=== PATIENT | female | born 1990 | race Caucasian/White ===

== ENCOUNTER → 2018-09-04 09:57 | Outpatient (CLI) | payer BC, SELFPAY ==
--- NOTE | 2018-09-04 10:07 | CT_ITS ---
CT abdomen pelvis w con CLINICAL INDICATION: ITS.REASON: ABD DISTENTON ORDERING PHYSICIAN: Nisha Robertson APRN PATIENT AGE: 28 years COMPARISON: None TECHNIQUE: Axial images obtained with sagittal and coronal reformats. All CT scans at the facility use one or more dose reduction, viz: automated exposure control, ma/kV adjustment per patient size (including targeted exams where dose is matched to indication, i.e. head), or iterative reconstruction technique. PROCEDURE: Oral Contrast: Yes IV Contrast: Yes . FINDINGS: Lower thorax: No acute finding ABDOMEN: Liver: No masses or biliary dilatation. Gallbladder: Nondistended. No radio opaque stones. Pancreas: No masses or peripancreatic fluid collections. Spleen: Unremarkable. Adrenals: Unremarkable Kidneys/ureters: No masses. No renal calculi. No hydronephrosis. No perinephric fluid collections. No ureteral dilatation or obvious ureteral calculi. Stomach bowel: Nondistended. No obvious mass or thickening. Appendix: No evidence of appendicitis. PELVIS: Reproductive: There appears to be mild prominence of the superior midline septum of the uterine cavity. Bladder: Nondistended. No obvious stones or masses. ABDOMEN & PELVIS: Peritoneum: No abnormal fluid collections. No obvious inflammatory changes. No free air. Lymph nodes: No enlarged lymph nodes apparent. Vasculature: No evidence of abdominal aortic aneurysm. No retroperitoneal hemorrhage evident. Bones: No acute fracture IMPRESSION: No evidence of free air, ascites or bowel dilatation. 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
== END ==
PROVIDERS: PCP Family Medicine; Referring Provider Nurse Practitioner Family; Visit Provider Nurse Practitioner Family
DX: R14.0 Abdominal distension (gaseous) (principal)
CPT/HCPCS: 74177; Q9967

== ENCOUNTER → 2019-12-25 09:34 | Outpatient (CLI) | payer BC, SELFPAY ==
[2019-12-26 14:01] LABS: Covid-19 Nasal PCR Sendout Lex NOT DETECTED
== END ==
PROVIDERS: PCP Family Medicine; Visit Provider Nurse Practitioner Family
DX: Z03.818 Encounter for observation for suspected exposure to other biological agents ruled out (principal)
CPT/HCPCS: U0004

== ENCOUNTER 2022-07-04 16:20 | Emergency (ER) | payer MEDICAID, SELFPAY ==
--- NOTE | 2022-07-04 16:29 | PC.NURSE ---
pt in restroom at this time
[2022-07-04 16:30] VITALS: BP 142/58; PULSE 95; RESP 18; TEMP 36.7; O2SAT 95
[2022-07-04 16:37] VITALS: BMI 20.9
[2022-07-04 16:48] LABS: Microscopic, Urine URINE MICROSCOPIC (MICROSCOPIC)
--- NOTE | 2022-07-04 16:49 | US_ITS ---
PROCEDURE INFORMATION: Exam: US First Trimester, Transabdominal and US Duplex Artery or Vein, Ovaries, Limited Exam date and time: 07/04/2022 5:11 PM Age: 32 years old Clinical indication: Lmp or gestational age (in weeks): 04/21/2022; Other: Vaginal bleeding and pain; complicated by abdominal or pelvic pain; ; Additional info: Pg, vaginal bleeding . LMP 04/21/2022 with EGA of 10 weeks 4 days and BETO of 01/26/2023 TECHNIQUE: Imaging protocol: Real-time transabdominal obstetrical ultrasound of the maternal pelvis and a first trimester , less than 14 weeks 0 days, with image documentation. Real-time duplex ultrasound scan of the arterial or venous flow of the ovaries with B-mode, color Doppler flow and spectral waveform analysis, limited Duplex. Duplex exam was performed to evaluate for torsion and other vascular conditions. COMPARISON: ABDPELW CT abdomen pelvis w con 09/04/2018 11:09 AM FINDINGS: Gestation: There is a likely single intrauterine gestational sac. Less likely would be a pseudo sac. This has slightly irregular contours on some images but the technologist noted that this was due to uterine contractions. No well-defined pole seen. No yolk sac was seen. Embryonic/ heart rate: No heart rate yet detected Extra-embryonic membranes/Placenta: Unremarkable. No subchorionic bleed. Amniotic fluid: Amniotic fluid is unremarkable. BIOMETRY: Gestational age (AUA): Mean sac diameter of 1.55 cm corresponds with gestational age of 6 weeks 3 days, with BETO of 02/24/2023. MATERNAL: Uterus: The uterus measured approximately 9.3 cm length. There are some echogenic shadowing foci in the anterior myometrium which could be underlying fibroid or myometrial calcifications, see images 12-13. The technologist noted possible uterine contraction during the exam. Cervix: The endocervical canal measures approximately 3 cm length on these images and appears closed. Tiny cervical nabothian cyst. Right ovary/adnexa: Suboptimal acoustic window and bowel gas limit evaluation. The right ovary measures approximately 1.9 x 1.7 x 1.3 cm, containing tiny follicles. Color flow is not well seen. Duplex venous Doppler waveform was documented in the right ovary. No enlarged cyst or mass seen. Left ovary/adnexa: Suboptimal acoustic window and bowel gas limit evaluation. The structure believed to be the left ovary measures approximately 1.7 x 2.2 x 1.4 cm. There is some color flow, and duplex arterial flow documented in the left ovary. No findings of torsion. No enlarged cyst or mass seen. Intraperitoneal space: No intraperitoneal free fluid. IMPRESSION: 1. Likely intrauterine gestational sac of 6 week 3 day size, but there is no pole or yolk sac visible. Given the LMP of 04/21/2022, findings are suspicious for, but not diagnostic of, failure. Recommend correlation with serial quantitative HCG levels and close follow-up to exclude a very early viable IUP, versus failure. 2. Less likely differential would be a pseudo sac with occult ectopic ; no ectopic detected. 3. Suboptimal Doppler exam due to bowel gas shadows and poor acoustic window, but some Doppler flow was seen in both ovaries as detailed above. No findings of torsion to explain pelvic pain. 4. Additional nonemergency and chronic findings as above.
[2022-07-04 16:56] LABS: Appearance,Urine CLEAR (Clear); Bilirubin,Urine Negative (Negative); Blood, Urine 3+ (Negative); Color,Urine YELLOW (Yellow); Glucose,Urine (UA) Negative (Negative); Ketones,Urine Negative (Negative); Leukocyte Esterase,Urine Negative (Negative); Nitrate,Urine Negative (Negative); Protein,Urine Negative (Negative); Specific Gravity, Urine 1.015 (1.005-1.030); Urobilinogen,Urine 0.2 EU/dl (0.2)
--- NOTE | 2022-07-04 17:07 | PC.NURSE ---
pt to ultrasound via wheelchair
[2022-07-04 17:18] LABS: Basophils # 0.1 K/mm3 (0-0.2); Basophils % 0.4 % (0.1-2.0); Eosinophils # 0.3 K/mm3 (0.0-0.4); Eosinophils % 2.7 % (0.1-12.0); Hematocrit 45.2 % (37.0-47.0); Hemoglobin 14.8 g/dL (12.2-16.2); Lymphocytes # 2.1 K/mm3 (0.7-4.5); Mean Corpuscular HGB Conc 32.6 g/dL (31.8-35.4); Mean Corpuscular Hemoglobin 31.5 pg (27.0-31.2); Mean Corpuscular Volume 96.6 fl (81-99); Mean Platelet Volume 7.6 fl (7.4-10.4); Monocytes # 0.5 K/mm3 (0.1-1.0); Monocytes % 3.7 % (1.7-9.3); Neutrophils # 9.4 K/mm3 (1.8-7.8); Neutrophils % 76.1 % (37.0-80.0); Platelet Count 503 K/mm3 (142-424); Red Blood Count 4.69 M/mm3 (4.20-5.40); Red Cell Distribution Width 12.1 % (11.5-17.5); White Blood Count 12.4 K/mm3 (4.8-10.8)
[2022-07-04 17:19] LABS: Chloride 100 mmol/L (98-107); Potassium 4.5 mmoL/L (3.5-5.1); Sodium 136 mmol/L (136-145)
[2022-07-04 17:22] LABS: Alanine Aminotransferase 46 U/L (12-78); Albumin Level 4.8 g/dl (3.5-5.0); Albumin/Globulin Ratio 1.2 (1.1-1.8); Alkaline Phosphatase 71 U/L (38-126); Anion Gap 15.5 mEq/L (5-15); Aspartate Amino Transferase 55 U/L (14-36); Bilirubin,Total 0.4 mg/dl (0.2-1.3); Blood Urea Nitrogen 9 mg/dl (7-17); Calcium 10.2 mg/dl (8.4-10.2); Carbon Dioxide 25 mmol/L (22.0-30.0); Creatinine Clearance Estimated 134 mL/min (50-200); Estimated Glomerular Filt Rate 141 ml/min (>60); GFR (African American) 171 ML/MIN (>60); Globulin 4.1 g/dL (1.3-3.2); Glucose 142 mg/dl (74-100); Total Protein,Serum 8.9 g/dl (6.3-8.2)
[2022-07-04 17:28] LABS: WBC,Urine Occasional #/hpf (0-3)
[2022-07-04 17:29] LABS: Bacteria,Urine Trace /lpf; RBC,Urine TNTC #/hpf (0-3)
--- NOTE | 2022-07-04 17:39 | PC.NURSE ---
pt return from u/s at this time, pt reports pain not improving.
--- NOTE | 2022-07-04 17:41 | PC.NURSE ---
notified ER of verbal report from u/s staff and that pt pain is not improved
[2022-07-04 17:47] LABS: HCG,Quantitative 5854 mIU/ml (0-5.42)
--- NOTE | 2022-07-04 18:10 | [facility].EDGENADL ---
Discharge Plan Disposition Patient Disposition: Home, Self-Care Chief Complaint: Vaginal Bleeding Referrals Follow up/Referrals: Polo Russo MD [Primary Care Provider] - See instructions Activity Restrictions/Add. Instructions Additional Instructions/Restrictions: Follow-up with Dr. Vigil in gynecology on or Sunday Repeat beta quant lab test in 48 hours on . Return for dizziness vaginal bleeding that is worsening or any other concerns within 8 hours. Clinical Impressions Clinical Impression: Vaginal bleeding in patient after first trimester Discharge ED Provider: Juice Peña General Adult HPI General Chief complaint: Vaginal Bleeding Stated complaint: poss miscarriage Time Seen by Provider: 07/04/22 16:25 Mode of Arrival: Wheelchair Source of Information: Patient Limitations: No Limitations Description of Symptoms (Recalled from ER Triage Doc. by RN): Pt reports vaginal bleeding that began yesterday. reports is approx 9 weeks . Pt also reports pelvic cramping and passing clots. History of Present Illness HPI narrative: 32-year-old female with 9 weeks has not had ultrasound yet this . She began having bleeding yesterday and has been having a few pads per day has pelvic cramping and is passing clots. No fever chills discharge. She does have history of prior miscarriage and required an D&C. No other bleeding disorder. Related Data Allergies Allergy/AdvReac Type Severity Reaction Status Date / Time No Known Allergies Allergy Verified 07/04/22 16:38 [facility] Disclaimer: The information contained in this section may have been updated after the patient was seen, as this information can be updated by other users. Social History Smoking Status: Unknown if ever smoked alcohol intake: never current occupational status: other Travel in the last 8 weeks: [employer] States ROS Obtained: Yes All systems reviewed & no additional complaints except as documented Constitutional Constitutional: Denies fatigue and Denies headache(s) Eyes Eyes: Denies eye pain ENT Ears, Nose, Mouth, and Throat: Denies headache(s) and Denies tongue swelling Cardiovascular Cardiovascular: Denies leg edema Respiratory Respiratory: Denies cough Gastrointestinal Gastrointestingal: Denies coffee ground emesis Genitourinary Female Genitourinary: Denies flank pain Musculoskeletal Musculoskeletal: Denies joint stiffness Integumentary/Breasts Skin/Breast: Denies lesions Neurologic Neurologic: Denies headache(s) Endocrine Endocrine: Denies fatigue Hematologic/Lymphatic Henatologic/Lymphatic: Denies easy bleeding Allergic/Immunologic Allergic/Immunologic: Denies tongue swelling Physical Exam General General appearance: alert and in no apparent distress Eye Eye exam: Present PERRL and EOMI ENT ENT exam: Present normal exam and normal oropharynx Neck Neck exam: Present normal inspection Chest Chest inspection: Present symmetric chest wall rise Respiratory Respiratory exam: Present normal lung sounds bilaterally; Absent respiratory distress Cardiovascular Cardiovascular exam: Present regular rate and normal rhythm Abdominal Exam Abdominal exam: Present soft; Absent distention, tenderness, guarding, rebound, Frances's sign or tenderness at McBurney's Point Back Exam Back exam: Present normal inspection Neurological Exam Neurological exam: Present alert and oriented X3 Psychiatric Psychiatric exam: Present normal affect and normal mood Skin Skin exam: Present warm, dry and intact Lymphatic Lymphatic Findings: no adenopathy Medical Decision Making Medical Records Medical records reviewed: Yes I reviewed the patient's medical records. Yannick Inquiry Pt receiving controlled substance: No Yannick was queried for this patient: No Vital Signs: 07/04/22 16:30 Temperature 98.1 F Temperature Source Oral Pulse Rate [Right Radial] 95 H Respiratory Rate 18 Blood Pres
--- NOTE | 2022-07-04 18:12 | PC.NURSE ---
paging ob to speak with hi olivia about pt
[2022-07-04 18:41] VITALS: BP 127/63; PULSE 84; RESP 17; TEMP 36.7; O2SAT 97
== END 2022-07-04 18:43 | disposition home or self-care (01) ==
PROVIDERS: Emergency Provider Emergency Medicine; PCP Family Medicine
DX: O20.9 Hemorrhage in early pregnancy, unspecified (principal); Z3A.09 9 weeks gestation of pregnancy
CPT/HCPCS: 76801; 80053; 81001; 84702; 85025; 86900; 86901; 99284; 99285

== ENCOUNTER → 2022-07-06 15:26 | Outpatient (CLI) | payer MEDICAID, SELFPAY ==
[2022-07-06 16:56] LABS: HCG,Quantitative 762 mIU/ml (0-5.42)
== END ==
PROVIDERS: PCP Family Medicine; Visit Provider Emergency Medicine
DX: Z32.00 Encounter for pregnancy test, result unknown (principal)
CPT/HCPCS: 36415; 84702